=== PATIENT | male | born 1930 | race Caucasian/White ===

== ENCOUNTER 2017-10-31 13:13 | Emergency (ER) | payer MEDICARE, BC ==
[~2017-10-31 13:13] MED LIST: ASPI81TA15 PO; PRED-314 PO; QUET25TA31 PO
--- NOTE | 2017-10-31 13:20 | ER Report ---
History and Physical Time Seen By MD: 13:21 HPI/ROS CHIEF COMPLAINT: Questionable silent seizure HISTORY OF PRESENT ILLNESS: This is an 87-year-old male who presents to the emergency department with his daughters for crushable silent seizure. The patient apparently was out working in his yard this morning mowing his lawn, came back in his daughters had some lunch for him at around noon one daughter was sitting across from him she states that his eyes rolled back in his head and was "not there" for approximately 15-30 seconds, she called her sister who is in the other room by the time she came in to see what was going on he was back to n ormal, no postictal period. Acting appropriate. No chest pain or shortness of breath. No nausea vomiting. No diaphoresis. No recent fevers or chills. No focal neuro deficits. No headaches. No facial droop. REVIEW OF SYSTEMS: Constitutional: No fever, no chills. Eyes: No discharge. ENT: No sore throat. Cardiovascular: No chest pain, no palpitations. Respiratory: No cough, no shortness of breath. Gastrointestinal: No abdominal pain, no vomiting. Genitourinary: No hematuria. Musculoskeletal: No back pain. Skin: No rashes. Neurological: As above. Allergies: Coded Allergies: No Known Drug Allergies (Unverified , 10/31/17) Home Meds Reported Medications Melatonin (MELATONIN) 1 Mg Tab.subl, 1 MG SL 10/31/17 Quetiapine Fumarate (SEROQUEL) 25 Mg Tablet, 12.5 MG PO QHS 12/04/11 Discontinued Reported Medications Prednisone (PREDNISONE) 20 Mg Tablet, 20 MG PO BID, #14 12/05/11 Aspirin (ASPIRIN) 81 Mg Tablet.dr, 81 MG PO DAILY 12/04/11 Past Medical/Surgical History The patient has a past medical and surgical history of emphysema, wears glasses, hiatal hernia, depression. Reviewed Nurses Notes: Yes Hx Smoking: Yes (1PACK/DAY) Hx Substance Use Disorder: No Hx Alcohol Use: Yes Constitutional Vital Sign - Last 24 Hours 10/31/17 10/31/17 10/31/17 10/31/17 13:13 13:17 13:26 13:28 Pulse ??? 80 76 Resp 16 14 B/P (MAP) 98/60 98/60 (73) Pulse Ox 95 93 10/31/17 10/31/17 10/31/17 10/31/17 13:30 13:43 13:58 14:00 Pulse 75 74 Resp 16 30 B/P (MAP) 99/62 (74) 98/63 (75) Pulse Ox 93 92 10/31/17 10/31/17 10/31/17 10/31/17 14:13 14:28 14:30 14:35 Pulse 71 67 64 Resp 19 13 15 B/P (MAP) 109/88 (95) Pulse Ox 92 96 97 10/31/17 10/31/17 10/31/17 14:50 15:00 15:05 Pulse 69 ??? Resp 11 12 B/P (MAP) 116/77 (90) Pulse Ox 94 85 Physical Exam General Appearance: The patient is alert, has no immediate need for airway protection and no signs of toxicity. Eyes: Pupils equal and round no pallor or injection. EOMs intact. No nystagmus. ENT, Mouth: Mucous membranes are moist. Respiratory: There are no retractions, lungs are clear to auscultation. Cardiovascular: Regular rate and rhythm, distant, no murmurs, clicks or rubs. Gastrointestinal: Abdomen is soft and non tender, no masses, bowel sounds normal. Neurological: Alert and oriented 4. Moving all extremities. Following all commands. No focal neuro deficits. Cranial nerves II through XII intact. Skin: Warm and dry, no rashes. Musculoskeletal: Neck is supple non tender. Extremities are nontender, nonswollen and have full range of motion. DIFFERENTIAL DIAGNOSIS: After history and physical exam differential diagnosis was considered for TIA, CVA, myocardial infarction, absence seizure, migraine, and near syncope. Medical Decision Making Data Points Result Diagram: 10/31/17 1357 10/31/17 1357 Laboratory Hematology Test 10/31/17 13:20 10/31/17 13:57 Urine Color Yellow Urine Clarity Slightly-cloudy Urine pH 5.0 pH (4.8-9.5) Urine Specific Clifford 1.018 Urine Protein Negative mg/dL (NEGATIVE) Urine Glucose (UA) Negative mg/dL (NEGATIVE) Urine Ketones Trace mg/dL (NEGATIVE) Urine Blood Large (NEGATIVE) Urine Nitrite Negative (NEGATIVE) Urine Bilirubin Negative (NEGATIVE) Urine Urobilinogen Negative mg/dL (0.2-1.9) Urine Leukocyte Esterase Trace (NEGATIVE) Urine RBC 152 /HPF (0-2/HPF) Urine WBC 28 /HPF (0-5/HPF) Urine Squamous Epithelial Cells Few /LPF (</=FEW) Urine Transitional Epithelial Cells Many /LPF (NONE-FEW) Urine Bacteria Negative /HPF (NONE-FEW) Urine Hyaline Casts Few /LPF (NONE-FEW) Urine Mucus Few /HPF (NONE-FEW) Red Blood Count 3.95 M/uL (4.00-5.60) Mean Corpuscular Volume 103.1 fL (80.0-96.0) Mean Corpuscular Hemoglobin 35.1 pg (26.0-33.0) Mean Corpuscular Hemoglobin Concent 34.0 g/dL (32.0-36.0) Red Cell Distribution Width 14.4 % (11.5-14.5) Mean Platelet Volume 8.9 fL (7.2-11.1) Neutrophils (%) (Auto) 70.5 % (39.4-72.5) Lymphocytes (%) (Auto) 17.8 % (17.6-49.6) Monocytes (%) (Auto) 9.1 % (4.1-12.4) Eosinophils (%) (Auto) 1.1 % (0.4-6.7) Basophils (%) (Auto) 1.5 % (0.3-1.4) Nucleated RBC Relative Count (auto) 0.0 /100WBC Neutrophils # (Auto) 3.0 K/uL (2.0-7.4) Lymphocytes # (Auto) 0.8 K/uL (1.3-3.6) Monocytes # (Auto) 0.4 K/uL (0.3-1.0) Eosinophils # (Auto) 0.0 K/uL (0.0-0.5) Basophils # (Auto) 0.1 K/uL (0.0-0.1) Nucleated RBC Absolute Count (auto) 0.00 K/uL Sodium Level 140 mmol/L (137-145) Potassium Level 4.2 mmol/L (3.5-5.0) Chloride Level 105 mmol/L (98-107) Carbon Dioxide Level 27 mmol/L (22-30) Blood Urea Nitrogen 30 mg/dl (9-21) Creatinine 1.20 mg/dl (0.66-1.25) Glomerular Filtration Rate Calc 57.3 Random Glucose 78 mg/dl (75-110) Calcium Level 8.9 mg/dl (8.4-10.2) Total Bilirubin 0.3 mg/dl (0.2-1.3) Aspartate Amino Transf (AST/SGOT) 24 U/L (0-35) Alanine Aminotransferase (ALT/SGPT) 26 U/L (0-56) Alkaline Phosphatase 45 U/L (0-126) Troponin I 0.035 ng/ml Total Protein 6.6 g/dl (6.3-8.2) Albumin 3.9 g/dl (3.5-5.0) Chemistry Test 10/31/17 13:20 10/31/17 13:57 Urine Color Yellow Urine Clarity Slightly-cloudy Urine pH 5.0 pH (4.8-9.5) Urine Specific Clifford 1.018 Urine Protein Negative mg/dL (NEGATIVE) Urine Glucose (UA) Negative mg/dL (NEGATIVE) Urine Ketones Trace mg/dL (NEGATIVE) Urine Blood Large (NEGATIVE) Urine Nitrite Negative (NEGATIVE) Urine Bilirubin Negative (NEGATIVE) Urine Urobilinogen Negative mg/dL (0.2-1.9) Urine Leukocyte Esterase Trace (NEGATIVE) Urine RBC 152 /HPF (0-2/HPF) Urine WBC 28 /HPF (0-5/HPF) Urine Squamous Epithelial Cells Few /LPF (</=FEW) Urine Transitional Epithelial Cells Many /LPF (NONE-FEW) Urine Bacteria Negative /HPF (NONE-FEW) Urine Hyaline Casts Few /LPF (NONE-FEW) Urine Mucus Few /HPF (NONE-FEW) White Blood Count 4.3 k/uL (4.5-11.0) Red Blood Count 3.95 M/uL (4.00-5.60) Hemoglobin 13.8 g/dL (14.0-18.0) Hematocrit 40.7 % (42.0-52.0) Mean Corpuscular Volume 103.1 fL (80.0-96.0) Mean Corpuscular Hemoglobin 35.1 pg (26.0-33.0) Mean Corpuscular Hemoglobin Concent 34.0 g/dL (32.0-36.0) Red Cell Distribution Width 14.4 % (11.5-14.5) Platelet Count 128 K/uL (150-450) Mean Platelet Volume 8.9 fL (7.2-11.1) Neutrophils (%) (Auto) 70.5 % (39.4-72.5) Lymphocytes (%) (Auto) 17.8 % (17.6-49.6) Monocytes (%) (Auto) 9.1 % (4.1-12.4) Eosinophils (%) (Auto) 1.1 % (0.4-6.7) Basophils (%) (Auto) 1.5 % (0.3-1.4) Nucleated RBC Relative Count (auto) 0.0 /100WBC Neutrophils # (Auto) 3.0 K/uL (2.0-7.4) Lymphocytes # (Auto) 0.8 K/uL (1.3-3.6) Monocytes # (Auto) 0.4 K/uL (0.3-1.0) Eosinophils # (Auto) 0.0 K/uL (0.0-0.5) Basophils # (Auto) 0.1 K/uL (0.0-0.1) Nucleated RBC Absolute Count (auto) 0.00 K/uL Glomerular Filtration Rate Calc 57.3 Calcium Level 8.9 mg/dl (8.4-10.2) Total Bilirubin 0.3 mg/dl (0.2-1.3) Aspartate Amino Transf (AST/SGOT) 24 U/L (0-35) Alanine Aminotransferase (ALT/SGPT) 26 U/L (0-56) Alkaline Phosphatase 45 U/L (0-126) Troponin I 0.035 ng/ml Total Protein 6.6 g/dl (6.3-8.2) Albumin 3.9 g/dl (3.5-5.0) Urinalysis Test 10/31/17 13:20 Urine Color Yellow Urine Clarity Slightly-cloudy Urine pH 5.0 pH (4.8-9.5) Urine Specific Clifford 1.018 Urine Protein Negative mg/dL (NEGATIVE) Urine Glucose (UA) Negative mg/dL (NEGATIVE) Urine Ketones Trace mg/dL (NEGATIVE) Urine Blood Large (NEGATIVE) Urine Nitrite Negative (NEGATIVE) Urine Bilirubin Negative (NEGATIVE) Urine Urobilinogen Negative mg/dL (0.2-1.9) Urine Leukocyte Esterase Trace (NEGATIVE) Urine RBC 152 /HPF (0-2/HPF) Urine WBC 28 /HPF (0-5/HPF) Urine Squamous Epithelial Cells Few /LPF (</=FEW) Urine Transitional Epithelial Cells Many /LPF (NONE-FEW) Urine Bacteria Negative /HPF (NONE-FEW) Urine Hyaline Casts Few /LPF (NONE-FEW) Urine Mucus Few /HPF (NONE-FEW) EKG/Imaging EKG Interpretation 12 lead EKG: Time of EKG 1359. Rhythm: Sinus rhythm, ventricular rate 69 bpm, first-degree AV block. [place]: Left QRS: normal ST segments: No ST depression or elevation identified, poor T-wave progression in V2. No previous EKGs to compare to. Imaging CHEST PA AND LAT HISTORY: Silent seizure. COMPARISON: Chest x-ray August 10, 2016. FINDINGS: Cardiomediastinal contours: The heart is enlarged. There is prominent calcifica tion of the aortic valve and aortic arch. Lungs and pleura: There is hyperinflation of the lungs. There is no acute infiltrate. Bones/soft tissues: Osteopenia without findings of a fracture. IMPRESSION: 1. Cardiomegaly with prominent calcification of the aortic valve suggestive of aortic stenosis. 2. No congestive heart failure or infiltrate. 3. Hyperinflation of the lungs. Report Dictated By: Hair Tang MD at 10/31/2017 2:23 PM Report E-Signed By: Hair Tang MD at 10/31/2017 2:24 PM WSN:[email or web address] ED Course/Re-evaluation Clinical Indication for ER IV: Hydration, IV Access ED Course The patient was admitted to a room. A history and physical were obtained. Differential diagnoses were considered. IV was started. EKG showing normal sinus rhythm. Two-view chest x-ray showing no acute cardiopulmonary process, does note that there is cardiomegaly and calcification of the aortic valve suggestive of aortic stenosis. A CBC, CMP, troponin CBC unchanged from previous lab studies, troponin 0.035, however pt has denied chest pain and shortness of breath recently, nothing today. Patient does have a history of emphysema, BUN of 30, creatanine of 1.20. No nausea or vomiting. The patient was given 1 L normal saline. Patient has had no other recurrent events while in the ED. I did review the laboratory studies and x-ray with the patient. Patient states he is ready to go home. Did not have a clear explanation as to why the patient had the one event, it could be secondary to working in his yard today with the lack of hydra tion. The patient was encouraged to follow up with his primary care provider for reevaluation, return to the ER for any other concerns or worsening symptoms. The patient had no other questions or concerns at this time and was discharged home. Decision to Disposition Date: Oct 31, 2017 Decision to Disposition Time: 15:11 Depart Departure Latest Vital Signs Vital Signs Date Time Temp Pulse Resp B/P (MAP) Pulse Ox O2 Delivery O2 Flow Rate FiO2 10/31/17 15:05 ??? 12 85 10/31/17 15:00 116/77 (90) Impression: Primary Impression: Cardiomegaly Additional Impression: Near syncope Condition: Improved Disposition: HOME OR SELF-CARE Referrals: PRABHA RUSSELL DO 1 Week Patient Instructions: Hypertrophic Cardiomyopathy (ED), Near Syncope (ED) Additional Instructions: I do not have a clear explanation as to why he had the episode today, however I do feel that this is secondary to your exposure to the sun working in the yard this morning he could be a near syncopal episode. Your laboratory studies are basically unchanged from previous studies. The chest x-ray and the EKG are unremarkable today. I would recommend following up with Dr. Russell next week for reevaluation. Please increase your water intake. Get plenty of rest. Continue with your current medications. Return to the ER for any other concerns or worsening symptoms. Problem Qualifiers [employer] Oct 31, 2017 13:20
[2017-10-31] MEDS ORDERED: MELA1TAB5 SL (13:26)
[2017-10-31] MEDS ORDERED: NS(*) 0.9% 1000 ML BAG 1,000 ML IV ONE (14:05)
--- NOTE | 2017-10-31 14:05 | EKG ---
FACILITY: [facility] - [place] PATIENT NAME: MARI MOTLEY : [id number] MR: [id number] V: [id number] EXAM DATE: ORDERING PHYSICIAN: JENIFER COOK TECHNOLOGIST: NICHOLE Test Reason : Blood Pressure : / mmHG Vent. Rate : 069 BPM Atrial Rate : 069 BPM P-R Int : 248 ms QRS Dur : 092 ms QT Int : 422 ms P-R-T Axes : 014 -85 085 degrees QTc Int : 452 ms Sinus rhythm with 1st degree AV block with fusion complexes Left axis deviation Anteroseptal infarct , age undetermined Abnormal ECG No previous ECGs available Confirmed by Ovi Charlton ([id number]) on 10/31/2017 4:57:17 PM Referred By: JENIFER Confirmed By:Ovi Romo
[2017-10-31 14:08] LABS: PLATELET COUNT, AUTOMATED 128 K/uL (150-450)
--- NOTE | 2017-10-31 14:27 | RADIOLOGY IMAGING REPORT ---
FACILITY: [facility] - [place] PATIENT NAME: Vivi Elias : 1930 MR: [id number] V: [id number] EXAM DATE: ORDERING PHYSICIAN: JENIFER COOK TECHNOLOGIST: Location: [facility] - [place] Patient: Vivi Elias : 1930 Visit/Account:[id number] Date of Sevice: 10/31/2017 CHEST PA AND LAT HISTORY: Silent seizure. COMPARISON: Chest x-ray August 10, 2016. FINDINGS: Cardiomediastinal contours: The heart is enlarged. There is prominent calcification of the aortic va lve and aortic arch. Lungs and pleura: There is hyperinflation of the lungs. There is no acute infiltrate. Bones/soft tissues: Osteopenia without findings of a fracture. IMPRESSION: 1. Cardiomegaly with prominent calcification of the aortic valve suggestive of aortic stenosis. 2. No congestive heart failure or infiltrate. 3. Hyperinflation of the lungs. Report Dictated By: Hair Tang MD at 10/31/2017 2:23 PM Report E-Signed By: Hair Tang MD at 10/31/2017 2:24 PM WSN:[email or web address]
[2017-10-31 15:00] VITALS: BP 116/77
== END 2017-10-31 15:20 | disposition home or self-care (01) ==
LOC: ER 13:24
DX: I51.7 Cardiomegaly (principal); R55 Syncope and collapse; J43.9 Emphysema, unspecified; F32.9 Major depressive disorder, single episode, unspecified; Z87.891 Personal history of nicotine dependence
CPT/HCPCS: 71046; 81001; 84484; 85025; 87088; 93005; 96360; 99283; J7030; 82040; 82247; 82310; 82374; 82435; 82565; 82947; 84075; 84132; 84155; 84295; 84450; 84460; 84520; 87077; 87186

== ENCOUNTER 2017-11-26 02:43 | Emergency (ER) | payer MEDICARE, BC ==
[2017-11-26 02:45] VITALS: BP 137/88
--- NOTE | 2017-11-26 03:06 | ER Report ---
History and Physical Time Seen By MD: 02:45 Hx. of Stated Complaint: PT FELL YESTERDAY AND HAS LACERATION ON TOP OF HEAD. HPI/ROS CHIEF COMPLAINT: Fall, scalp wound HISTORY OF PRESENT ILLNESS: 87-year-old male brought in by EMS from home. Patient fell yesterday into the side of his house, sustaining a small laceration to the top of his scalp at the vertex. Patient bandaged the wound at home. Called his primary care doctorGempis to arrange for a CAT scan for head injury. Patient has had some intermittent bleeding of the wound. Tonight he bled to the Band-Aid on the top of his head. His daughter called 911 to have him brought in for evaluation. Patient lives alone. He is very functional. He only retired 2 years ago. She denies headache, blurry vision, nausea or vomiting. Patient denies neck pain. REVIEW OF SYSTEMS: Respiratory: No cough, no dyspnea. Cardiovascular: No chest pain, no palpitations. Gastrointestinal: No vomiting, no abdominal pain. Musculoskeletal: No back pain. Allergies: Coded Allergies: No Known Drug Allergies (Unverified , 11/26/17) Home Meds Reported Medications Melatonin (MELATONIN) 1 Mg Tab.subl, 1 MG SL 10/31/17 Quetiapine Fumarate (SEROQUEL) 25 Mg Tablet, 12.5 MG PO QHS 12/04/11 Reviewed Nurses Notes: Yes Old Medical Records Reviewed: Yes Hx Smoking: Yes (1PACK/DAY) Hx Substance Use Disorder: No Hx Alcohol Use: Yes Constitutional Vital Sign - Last 24 Hours 11/26/17 11/26/17 11/26/17 11/26/17 02:45 02:45 02:58 03:18 Temp 98.0 Pulse 79 75 Resp 16 B/P (MAP) 137/88 (104) 137/88 Pulse Ox 93 86 92 O2 Delivery Room Air 11/26/17 04:12 O2 Flow Rate 2.0 Physical Exam Vital signs stable, afebrile, pulse ox normal General Appearance: The patient is alert, has no immediate need for airway protection and no current signs of toxicity.. Palpation of the head and neck reveals no tenderness or trauma except for a tiny 1 cm laceration at the right vertex HEENT: Pupils equal and round no injection. TMs normal, oropharynx without dental trauma Respiratory: Chest is non tender, lungs are clear to auscultation. No chest wall tenderness Cardiac: regular rate and rhythm Gastrointestinal: Abdomen is soft and non tender, no masses, bowel sounds normal. Musculoskeletal: Neck: Neck is supple and non tender. No tenderness on aggressive palpation of the midline Extremities have full range of motion and are non tender. Skin: No rashes or lesions. Neuro alert and oriented 3, cranial nerves II through XII intact motor 5/5 all groups, sensory intact to light touch 4 DIFFERENTIAL DIAGNOSIS: After history and physical exam differential diagnosis was considered for head injury including but not limited to concussion, skull fracture, intraparenchymal contusion, subarachnoid, subdural and epidural hematoma. Medical Decision Making EKG/Imaging Imaging Results: CT scan of the [head] was obtained. The results of the study are The study was read by the radiologist. I viewed the images myself on the PACS system. ED Course/Re-evaluation ED Course Patient was admitted to an examination room. H&P was done. The differential diagnoses was considered. On clinical examination. Patient has a nonfocal neurologic examination. His head CT is performed to rule out intracranial injury. The patient's wound continued to bleed slowly. It was infiltrated with Sensorcaine 0.5% with epinephrine. A pressure dressing was applied but it con tinued to ooze. 3 magda were applied to the 1.0 cm laceration. A pressure dressing was applied., Magda to be removed in 10 days. Follow-up with Dr. Barone Procedure: Laceration repair. Verbal consent was obtained from the patient. The 1.0 cm laceration on the right parietal scalp was anesthetized in the usual fashion. The wound was scrubbed, draped and explored to its base with a gloved finger. The wound was repaired with magda 3. The wound repair was simple. The procedure was performed by myself. Decision to Disposition Date: Nov 26, 2017 Decision to Disposition Time: 03:51 Depart Departure Latest Vital Signs Vital Signs Date Time Temp Pulse Resp B/P (MAP) Pulse Ox O2 Delivery O2 Flow Rate FiO2 11/26/17 04:12 2.0 11/26/17 03:18 92 11/26/17 02:58 75 11/26/17 02:45 98.0 16 137/88 Room Air Impression: Primary Impression: Scalp laceration Additional Impression: Head injury Condition: Improved Disposition: HOME OR SELF-CARE Referrals: PRABHA RUSSELL DO (PCP) Patient Instructions: Head Injury (ED), Laceration (ED) Additional Instructions: You may wash your wound site with baby shampoo or shampoo as normal, gently blot the area dry Follow-up with Dr. Russell and have her magda removed in 10 days Problem Qualifiers Primary Impression: Scalp laceration Encounter type: initial encounter Qualified Codes: S01.01XA - Laceration without foreign body of scalp, initial encounter Additional Impression: Head injury Encounter type: initial encounter Qualified Codes: S09.90XA - Unspecified injury of head, initial encounter FORREST FAUST DO Nov 26, 2017 03:06
--- NOTE | 2017-11-26 03:45 | RADIOLOGY IMAGING REPORT ---
FACILITY: [facility] PATIENT NAME: Vivi Elias : 1930 MR: [id number] V: [id number] EXAM DATE: ORDERING PHYSICIAN: FORREST FAUST TECHNOLOGIST: Location: [facility] Patient: Vivi Elias : 1930 Visit/Account:[id number] Date of Sevice: 11/26/2017 CT Head without contrast Indication: Fall. Laceration. Comparison: None available Technique: Axial CT images were obtained through the brain from the skull base to the vertex without administration of IV contrast. Reformatted coronal and sagittal images were also obtained. One of the following dose optimization techniques was utilized in the performance of this exam: Autom ated exposure control; adjustment of the mA and/or kV according to the patient's size; or use of an i terative reconstruction technique. Specific details can be referenced in the facility's radiology C T exam operational policy. Findings: No evidence of mass, mass effect, or midline shift. No acute intracranial hemorrhage or acute territorial infarction. Marked periventricular white matter changes are seen. These correspond to areas of T2 hyperintensity on a prior brain MRI in 2015. Stable bilateral frontal hygromas are seen. No acute hemorrhage. Mild diffuse cerebral atrophy is present. There is a scalp hematoma overlying the vertex to the right of midline. No underlying fracture. Paranasal sinuses are well aerated IMPRESSION: 1. No acute intracranial abnormality. 2. Extensive periventricular white matter change likely related to chronic small vessel ischemia. Sim ilar findings on MRI in 2014. 3. 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 4. Scalp hematoma without fracture in keeping with the reported history. Report Dictated By: Junito Aviles at 11/26/2017 3:31 AM Report E-Signed By: Junito Aviles at 11/26/2017 3:40 AM WSN:[id number]
== END 2017-11-26 04:03 | disposition home or self-care (01) ==
LOC: ER 02:59
DX: S01.01XA Laceration without foreign body of scalp, initial encounter (principal); S09.90XA Unspecified injury of head, initial encounter
CPT/HCPCS: 70450; 99284

== ENCOUNTER → 2017-11-26 | Outpatient (CLI) | payer MEDICARE, BC ==
[~2017-11-26] MED LIST changes: +MELA1TAB5 SL
== END ==
LOC: AMB 02:21
PROVIDERS: ATTEND Nurse Practitioner
DX: S01.01XA Laceration without foreign body of scalp, initial encounter (principal)
CPT/HCPCS: A0425; A0429

== ENCOUNTER 2018-07-18 20:37 | Emergency (ER) | payer MEDICARE, BC ==
--- NOTE | 2018-07-18 20:40 | ER Report ---
History and Physical Time Seen By MD: 20:40 HPI/ROS CHIEF COMPLAINT: Weakness HISTORY OF PRESENT ILLNESS: 88-year-old male brought in by his family with concerns over increasing weakness over the last 2 days. He was diagnosed with UTI by primary care, placed on Cipro by Dr. Russell his primary care. He's been having trouble voiding his urine for the last several days. He's also had some constipation, but he's been taking MiraLAX and prune juice with improvement of his bowel function. Patient denies shortness of breath or cough. Pain. He is normally on 2 L by nasal cannula. He is hypoxic on arrival at 75% on room air. He's placed on supplemental O2 requiring 5 L to get to 96% after a DuoNeb. Patient denies chest pain or productive cough. REVIEW OF SYSTEMS: Respiratory: As above Cardiovascular: No chest pain, no palpitations. Gastrointestinal: No vomiting, no abdominal pain. Musculoskeletal: No back pain. Allergies: Coded Allergies: No Known Drug Allergies (Unverified , 11/26/17) Home Meds Reported Medications Quetiapine Fumarate (QUETIAPINE FUMARATE) 50 Mg Tablet, 1 TAB PO QHS 07/18/18 Tamsulosin Hcl (FLOMAX) 0.4 Mg Cap.er.24h, 1 TAB PO QDAY 07/18/18 Ciprofloxacin Hcl (CIPROFLOXACIN HCL) 250 Mg Tablet, 1 TAB PO BID 07/18/18 Discontinued Reported Medications Melatonin (MELATONIN) 1 Mg Tab.subl, 1 MG SL 10/31/17 Quetiapine Fumarate (SEROQUEL) 25 Mg Tablet, 12.5 MG PO QHS 12/04/11 Past Medical/Surgical History The patient has a past medical and surgical history of emphysema, wears glasses, hiatal hernia, depression. Reviewed Nurses Notes: Yes Old Medical Records Reviewed: Yes Hx Smoking: Yes (1PACK/DAY) Hx Substance Use Disorder: No Hx Alcohol Use: Yes Constitutional Vital Sign - Last 24 Hours 07/18/18 07/18/18 07/18/18 07/18/18 20:45 20:45 20:47 20:48 Temp 99.4 Pulse 171 169 Resp 24 B/P (MAP) 98/69 98/69 (79) 108/71 (83) Pulse Ox 77 77 O2 Delivery Room Air 07/18/18 07/18/18 07/18/18 07/18/18 20:57 21:00 21:04 21:05 Pulse 177 110 Resp 11 28 B/P (MAP) 102/66 (78) Pulse Ox 61 O2 Flow Rate 3.0 07/18/18 07/18/18 07/18/18 07/18/18 21:05 21:07 21:12 21:12 Pulse 114 114 Resp 14 28 Pulse Ox 100 93 92 O2 Delivery Oxy Mask Nasal Cannula O2 Flow Rate 10.0 5.0 07/18/18 07/18/18 07/18/18 07/18/18 21:17 21:30 21:37 21:47 Pulse 111 110 109 Resp 17 17 15 B/P (MAP) 124/82 (96) Pulse Ox 93 96 97 07/18/18 07/18/18 07/18/18 07/18/18 21:57 22:00 22:14 22:17 Pulse 119 110 Resp 17 17 B/P (MAP) 103/75 (84) 121/78 (92) Pulse Ox 83 97 07/18/18 07/18/18 07/18/18 07/18/18 22:40 22:45 23:00 23:15 Pulse 98 95 97 Resp 16 18 15 B/P (MAP) 104/66 (79) 108/63 (78) 114/74 (87) 07/18/18 07/18/18 07/19/18 07/19/18 23:30 23:45 00:00 00:30 Pulse 89 93 89 92 Resp 12 11 15 24 B/P (MAP) 103/67 (79) 112/74 (87) 103/68 (80) 07/19/18 07/19/18 07/19/18 00:45 01:30 02:00 Pulse 89 94 80 Resp 101 16 18 B/P (MAP) 108/72 (84) Pulse Ox 95 O2 Delivery Nasal Cannula O2 Flow Rate 4 Intake and Output 07/18/18 07/18/18 07/19/18 15:00 23:00 07:00 Intake Total 550 ml Balance 550 ml Physical Exam General Appearance: The patient is alert, has no immediate need for airway protection and no current signs of toxicity., Low-grade fever, moderate respiratory distress, hypoxic HEENT: Pupils equal and round no injection. Oropharynx without redness or exudate, mucous. Membranes are moist Respiratory: Chest is non tender, lungs are clear to auscultation. No wheezing or rails Cardiac: regular rate and rhythm, distant heart sounds Gastrointestinal: Abdomen is soft and non tender, no masses, bowel sounds normal. Musculoskeletal: Neck: Neck is supple and non tender. No JVD, no lymphadenopathy Extremities have full range of motion and are non tender. No edema, no calf tenderness Skin: No rashes or lesions. DIFFERENTIAL DIAGNOSIS: After history and physical exam differential diagnosis was considered for shortness of breath including but not limited to pulmonary infectious process, COPD, asthma, pulmonary embolus and congestive heart failure. Additionally, sepsis, urinary retention, urinary tract infection, constipation Medical Decision Making Data Points Result Diagram: 07/18/18205607/18/182056 Laboratory Hematology Test 07/18/18 20:57 07/18/18 21:30 Red Blood Count 4.07 M/uL (4.00-5.60) Mean Corpuscular Volume 101.5 fL (80.0-96.0) Mean Corpuscular Hemoglobin 34.0 pg (26.0-33.0) Mean Corpuscular Hemoglobin Concent 33.5 g/dL (32.0-36.0) Red Cell Distribution Width 14.0 % (11.5-14.5) Mean Platelet Volume 9.0 fL (7.2-11.1) Neutrophils (%) (Auto) 86.8 % (39.4-72.5) Lymphocytes (%) (Auto) 4.5 % (17.6-49.6) Monocytes (%) (Auto) 8.2 % (4.1-12.4) Eosinophils (%) (Auto) 0.1 % (0.4-6.7) Basophils (%) (Auto) 0.4 % (0.3-1.4) Nucleated RBC Relative Count (auto) 0.1 /100WBC Neutrophils # (Auto) 9.1 K/uL (2.0-7.4) Lymphocytes # (Auto) 0.5 K/uL (1.3-3.6) Monocytes # (Auto) 0.9 K/uL (0.3-1.0) Eosinophils # (Auto) 0.0 K/uL (0.0-0.5) Basophils # (Auto) 0.0 K/uL (0.0-0.1) Nucleated RBC Absolute Count (auto) 0.01 K/uL Peripheral Blood Smear No Y/N D-Dimer Quantitative (PE/DVT) > 20.00 ug/ml (0-0.50) Sodium Level 143 mmol/L (137-145) Potassium Level 4.2 mmol/L (3.5-5.0) Chloride Level 108 mmol/L (98-107) Carbon Dioxide Level 21 mmol/L (22-30) Blood Urea Nitrogen 28 mg/dl (9-21) Creatinine 1.20 mg/dl (0.66-1.25) Glomerular Filtration Rate Calc 57.1 Random Glucose 103 mg/dl (75-110) Lactate 4.2 mmol/L (0.7-2.1) Calcium Level 9.5 mg/dl (8.4-10.2) Total Bilirubin 0.3 mg/dl (0.2-1.3) Aspartate Amino Transf (AST/SGOT) 33 U/L (0-35) Alanine Aminotransferase (ALT/SGPT) 29 U/L (0-56) Alkaline Phosphatase 117 U/L (0-126) Troponin I 0.147 ng/ml B-Type Natriuretic Peptide 445 pg/ml (0-100) Total Protein 7.2 g/dl (6.3-8.2) Albumin 4.0 g/dl (3.5-5.0) Urine Color Blue Urine Clarity Cloudy Urine pH 5.0 pH (4.8-9.5) Urine Specific [place] 1.018 Urine Protein Negative mg/dL (NEGATIVE) Urine Glucose (UA) Negative mg/dL (NEGATIVE) Urine Ketones Negative mg/dL (NEGATIVE) Urine Blood Large (NEGATIVE) Urine Nitrite Negative (NEGATIVE) Urine Bilirubin Negative (NEGATIVE) Urine Urobilinogen Negative mg/dL (0.2-1.9) Urine Leukocyte Esterase Moderate (NEGATIVE) Urine RBC 139 /HPF (0-2/HPF) Urine WBC 45 /HPF (0-5/HPF) Urine Squamous Epithelial Cells Few /LPF (</=FEW) Urine Transitional Epithelial Cells Many /LPF (NONE-FEW) Urine Bacteria Negative /HPF (NONE-FEW) Urine Granular Casts Few /LPF (NONE) Urine Mucus None /HPF (NONE-FEW) Chemistry Test 07/18/18 20:57 07/18/18 21:30 White Blood Count 10.5 k/uL (4.5-11.0) Red Blood Count 4.07 M/uL (4.00-5.60) Hemoglobin 13.8 g/dL (14.0-18.0) Hematocrit 41.3 % (42.0-52.0) Mean Corpuscular Volume 101.5 fL (80.0-96.0) Mean Corpuscular Hemoglobin 34.0 pg (26.0-33.0) Mean Corpuscular Hemoglobin Concent 33.5 g/dL (32.0-36.0) Red Cell Distribution Width 14.0 % (11.5-14.5) Platelet Count 165 K/uL (150-450) Mean Platelet Volume 9.0 fL (7.2-11.1) Neutrophils (%) (Auto) 86.8 % (39.4-72.5) Lymphocytes (%) (Auto) 4.5 % (17.6-49.6) Monocytes (%) (Auto) 8.2 % (4.1-12.4) Eosinophils (%) (Auto) 0.1 % (0.4-6.7) Basophils (%) (Auto) 0.4 % (0.3-1.4) Nucleated RBC Relative Count (auto) 0.1 /100WBC Neutrophils # (Auto) 9.1 K/uL (2.0-7.4) Lymphocytes # (Auto) 0.5 K/uL (1.3-3.6) Monocytes # (Auto) 0.9 K/uL (0.3-1.0) Eosinophils # (Auto) 0.0 K/uL (0.0-0.5) Basophils # (Auto) 0.0 K/uL (0.0-0.1) Nucleated RBC Absolute Count (auto) 0.01 K/uL Peripheral Blood Smear No Y/N D-Dimer Quantitative (PE/DVT) > 20.00 ug/ml (0-0.50) Glomerular Filtration Rate Calc 57.1 Lactate 4.2 mmol/L (0.7-2.1) Calcium Level 9.5 mg/dl (8.4-10.2) Total Bilirubin 0.3 mg/dl (0.2-1.3) Aspartate Amino Transf (AST/SGOT) 33 U/L (0-35) Alanine Aminotransferase (ALT/SGPT) 29 U/L (0-56) Alkaline Phosphatase 117 U/L (0-126) Troponin I 0.147 ng/ml B-Type Natriuretic Peptide 445 pg/ml (0-100) Total Protein 7.2 g/dl (6.3-8.2) Albumin 4.0 g/dl (3.5-5.0) Urine Color Blue Urine Clarity Cloudy Urine pH 5.0 pH (4.8-9.5) Urine Specific [place] 1.018 Urine Protein Negative mg/dL (NEGATIVE) Urine Glucose (UA) Negative mg/dL (NEGATIVE) Urine Ketones Negative mg/dL (NEGATIVE) Urine Blood Large (NEGATIVE) Urine Nitrite Negative (NEGATIVE) Urine Bilirubin Negative (NEGATIVE) Urine Urobilinogen Negative mg/dL (0.2-1.9) Urine Leukocyte Esterase Moderate (NEGATIVE) Urine RBC 139 /HPF (0-2/HPF) Urine WBC 45 /HPF (0-5/HPF) Urine Squamous Epithelial Cells Few /LPF (</=FEW) Urine Transitional Epithelial Cells Many /LPF (NONE-FEW) Urine Bacteria Negative /HPF (NONE-FEW) Urine Granular Casts Few /LPF (NONE) Urine Mucus None /HPF (NONE-FEW) Coagulation Test 07/18/18 20:57 D-Dimer Quantitative (PE/DVT) > 20.00 ug/ml Urinalysis Test 07/18/18 21:30 Urine Color Blue Urine Clarity Cloudy Urine pH 5.0 pH (4.8-9.5) Urine Specific [place] 1.018 Urine Protein Negative mg/dL (NEGATIVE) Urine Glucose (UA) Negative mg/dL (NEGATIVE) Urine Ketones Negative mg/dL (NEGATIVE) Urine Blood Large (NEGATIVE) Urine Nitrite Negative (NEGATIVE) Urine Bilirubin Negative (NEGATIVE) Urine Urobilinogen Negative mg/dL (0.2-1.9) Urine Leukocyte Esterase Moderate (NEGATIVE) Urine RBC 139 /HPF (0-2/HPF) Urine WBC 45 /HPF (0-5/HPF) Urine Squamous Epithelial Cells Few /LPF (</=FEW) Urine Transitional Epithelial Cells Many /LPF (NONE-FEW) Urine Bacteria Negative /HPF (NONE-FEW) Urine Granular Casts Few /LPF (NONE) Urine Mucus None /HPF (NONE-FEW) Microbiology Microbiology Date/Time Source Procedure Growth Status 07/18/18 21:18 Blood Peripheral Draw Blood Culture - Preliminary NO GROWTH AFTER 1 DAY, REINCUBATED Resulted 07/18/18 20:57 Blood Peripheral Draw Blood Culture - Preliminary NO GROWTH AFTER 1 DAY, REINCUBATED Resulted 07/18/18 21:30 Clean Catch Midstream Ur Urine Culture - Preliminary NO GROWTH SO FAR, SET LATE. REINCUBATED Resulted EKG/Imaging EKG Interpretation 12 lead EKG: Rhythm: normal sinus rhythm [place]: normal QRS: normal ST segments: normal, comparison to previous EKG, there are old anterior Q waves with very mild ST elevation that appears a little more pronounced tonight, inferiorly. There is [address] depression in leads 2, 3 and aVF that appears to be new compared to previous EKG from 2017 Imaging X-ray: Single view portable chest x-ray was obtained. I viewed the images myself on the PACS system. My interpretation of the images is: No infiltrate, no effusion, normal mediastinum, hyperinflated lung coulter, comparison to previous chest x-ray. No significant change. The radiologist interpretation had no clinically significant variation from this interpretation. X-ray: Single. KUB of abdomen was obtained. I viewed the images myself on the PACS system. My interpretation of the images is: Moderate amount of stool throughout colon, no signs of obstruction. The radiologist interpretation had no clinically significant variation from this interpretation. Results: CT scan of the CTA pulmonary angiogram was obtained. The results of the study are CT angiogram of the chest: Indication: Dyspnea. Elevated d-dimer. Technique: Helical CT was performed through the chest following IV contrast enhancement with 75 cc of Isovue 370. Multiplanar reconstructions and MIP images are reviewed. One of the following dose optimization techniques was utilized in the performance of this exam: Automated exposure control; adjustment of the mA and/or kV according to the patient's size; or use of an iterative reconstruction technique. Specific details can be referenced in the facility's radiology CT exam operational policy. Comparison: None available. Pulmonary arteries: There is uniform contrast enhancement. There are no signs of pulmonary emboli. 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 There is also dilatation of the aortic arch, which measures 3.7 cm. There is no evidence of dissection. Diffuse athe rosclerotic calcification is present in the aortic wall. Heart and pericardial soft tissues: The heart appears normal in size. No pericardial effusion or soft tissue abnormality is identified. Mediastinal soft tissues: Unremarkable. Lung coulter: There is diffuse hyperinflation and diffuse emphysematous changes. No acute parenchymal process, mass, or nodules are identified. Pleural spaces: No evidence of effusion, focal pleural thickening, calcification, or soft tissue mass. Skeletal structures: Diffuse mild degenerative disc disease. No acute deformity. Upper abdomen: A tiny cyst is incidentally noted in the liver. Otherwise unremarkable. IMPRESSION: No evidence of pulmonary emboli. 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 There are no signs of dissection. There is diffuse hyperinflation and diffuse emphysematous changes in both lungs. No acute parenchymal or pleural process is identified. The study was read by the radiologist. I viewed the images myself on the PACS system. ED Course/Re-evaluation Clinical Indication for ER IV: Hydration, IV Access ED Course Patient was admitted to an examination room. H&P was done. The differential diagnoses was considered. Patient with shortness of breath and weakness. He has a low-grade fever 99. 4. He is currently being treated for urinary tract infection with Cipro. Patient is normally on 2 L by nasal cannula. He's grossly short of breath on arrival with air hunger and increased work of breathing. He is treated with a DuoNeb and supple. Mental to by simple mask is raise to 5 L to get his saturations in the 90s. Patient's EKG shows relatively no change from previous EKG there is some subtle ST depression approximately 1 mm in the inferior leads. There is subtle ST elevation in the anterior leads, but appears to be present on previous EKG, copies are provided. Patient's troponin returned grossly elevated at 0.174. Above the threshold of 0.12, suggesting evidence of ischemia. Patient was treated with 4 baby aspirin after strep troponin returned elevated. His BNP also returned at 450, suggesting congestive heart failure. His chest x-ray showed no obvious pulmonary vascular congestion or acute disease. D-dimer returned elevated at greater than 20. A CTA pulmonary angiogram was performed to rule out pulmonary embolism as the cause of strain in the elevated troponin. The CT scan was unremarkable for pulmonary embolism. There was a thoracic aneurysmal dilation to 4.7 cm without dissection noted. I long discussion with the patient and his daughter. He would like to go to a facility were cardiology can be consult with to treat him for a non-STEMI. Patient's lactate is elevated to 4.2. He shows some clinical symptoms of sepsis. Patient denies chest pain. 07/19/2018 12:05:54 am case was discussed with Dr. Arellano hospitalist at [facility] [place] patient for transfer. She would like to grams of Rocephin administered. And some gentle fluid resuscitation initiated. 07/19/2018 2:03:04 am patient decided to sign out against medical advice a prolonged explanation with him and his daughter about potential risks. Patient is electing to go home. He's advised to take at least a baby aspirin per day and follow-up with cardiology in clinic. Patient was given a calendar visiting cardiologists and the phone number to call. Decision to Disposition Date: July 18, 2018 Decision to Disposition Time: 22:12 Critical Care Time I spent a total of 60 minutes of critical care time in obtaining history, performing a physical exam, bedside monitoring of interventions, collecting and interpreting tests and discussion with consultants but not including time spent performing procedures. Depart Departure Latest Vital Signs Vital Signs Date Time Temp Pulse Resp B/P (MAP) Pulse Ox O2 Delivery O2 Flow Rate FiO2 07/19/18 02:00 80 18 108/72 (84) 95 Nasal Cannula 4 07/18/18 20:45 99.4 Impression: Primary Impression: Sepsis Additional Impressions: Dyspnea Weakness Hypoxia Non-STEMI (non-ST elevated myocardial infarction) Congestive heart failure Condition: Improved Disposition: AGAINST MED ADV / DISCONT CARE Referrals: PRABHA RUSSELL DO (PCP) Problem Qualifiers Primary Impression: Sepsis Sepsis type: sepsis due to unspecified organism Qualified Codes: A41.9 - Sepsis, unspecified organism Additional Impressions: Dyspnea Dyspnea type: unspecified Qualified Codes: R06.00 - Dyspnea, unspecified Congestive heart failure Heart failure type: unspecified Heart failure chronicity: acute Qualified Codes: I50.9 - Heart failure, unspecified FORREST FAUST DO July 18, 2018 20:40
[2018-07-18] MEDS ORDERED: NS(*) 0.9% 1000 ML BAG 1,000 ML IV ONE (20:51)
[2018-07-18] MEDS ORDERED: ALBUTEROL/IPRATROPIUM 3 ML NEB NEB ONE (20:55)
[2018-07-18 21:11] LABS: PLATELET COUNT, AUTOMATED 165 K/uL (150-450)
--- NOTE | 2018-07-18 21:15 | EKG ---
[place] [facility] [place] MARI MOTLEY : [id number] MR: [id number] V: [id number] EXAM DATE: ORDERING PHYSICIAN: FORREST FAUST TECHNOLOGIST: NIECY Test Reason : WEAKNESS Blood Pressure : / mmHG Vent. Rate : 115 BPM Atrial Rate : 115 BPM P-R Int : 160 ms QRS Dur : 088 ms QT Int : 344 ms P-R-T Axes : 000 -67 089 degrees QTc Int : 475 ms Sinus tachycardia . Likely, he has a 1st degree AV block after reviewing the previous, but it cannot be clearly seen today secondary to tachycardia Left axis deviation Anterolateral infarct (cited on or before 31-OCT-2017) Abnormal ECG When compared with ECG of 31-OCT-2017 13:59, Now tachycardic, but otherwise relatively unchanged. Confirmed by LOWELL REYNOSO ([id number]) on 07/18/2018 11:20:22 PM Referred By: Confirmed By:LOWELL REYNOSO
[2018-07-18] MEDS ORDERED: ASPIRIN 81 MG CHEW PO ONE (21:40)
[2018-07-18] MEDS ORDERED: CIPR-215 PO (21:42)
[2018-07-18] MEDS ORDERED: QUET50TA PO (21:42)
[2018-07-18] MEDS ORDERED: TAMS0.4C25 PO (21:42)
--- NOTE | 2018-07-18 22:20 | RADIOLOGY IMAGING REPORT ---
FACILITY: [facility] PATIENT NAME: Vivi Elias : 1930 MR: [id number] V: [id number] EXAM DATE: ORDERING PHYSICIAN: FORREST FAUST TECHNOLOGIST: Location: [facility] Patient: Vivi Elias : 1930 Visit/Account:[id number] Date of Sevice: 07/18/2018 KUB SINGLE VIEW ABDOMEN, CHEST SINGLE AP Indication: Dyspnea and hypoxia. Constipation.. Comparison: 2 views the chest on 10/31/2017 Findings: Heart size within normal limits. Markedly hyperinflated lung coulter again seen. There is no pneumothorax or effusion. There is no acut e process.No pneumothorax or pleural effusion. Single view of the abdomen shows moderate amount of stool within the colon. No evidence of bowel obst ruction. Vascular calcifications overlie the lower pelvis as well. 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 Multiple phleboliths seen in lower left pelvis. IMPRESSION: 1. No acute process or acute change from prior study.. 2. No evidence of bowel obstruction. Report Dictated By: Yadiel Cavazos MD at 07/18/2018 10:13 PM Report E-Signed By: Yadiel Cavazos MD at 07/18/2018 10:15 PM WSN:[id number]
--- NOTE | 2018-07-18 22:20 | RADIOLOGY IMAGING REPORT ---
FACILITY: [facility] PATIENT NAME: Vivi Elias : 1930 MR: [id number] V: [id number] EXAM DATE: ORDERING PHYSICIAN: FORREST FAUST TECHNOLOGIST: Location: [facility] Patient: Vivi Elias : 1930 Visit/Account:[id number] Date of Sevice: 07/18/2018 KUB SINGLE VIEW ABDOMEN, CHEST SINGLE AP Indication: Dyspnea and hypoxia. Constipation.. Comparison: 2 views the chest on 10/31/2017 Findings: Heart size within normal limits. Markedly hyperinflated lung coulter again seen. There is no pneumothorax or effusion. There is no acut e process.No pneumothorax or pleural effusion. Single view of the abdomen shows moderate amount of stool within the colon. No evidence of bowel obst ruction. Vascular calcifications overlie the lower pelvis as well. 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 Multiple phleboliths seen in lower left pelvis. IMPRESSION: 1. No acute process or acute change from prior study.. 2. No evidence of bowel obstruction. Report Dictated By: Yadiel Cavazos MD at 07/18/2018 10:13 PM Report E-Signed By: Yadiel Cavazos MD at 07/18/2018 10:15 PM WSN:[id number]
[2018-07-18] MEDS ORDERED: NS(*) 0.9% 50 ML BAG 50 ML ONE (22:24)
[2018-07-18] MEDS ORDERED: IOPAMIDOL 76% 100 ML INFUS BTL 100 ML ONE (22:24)
--- NOTE | 2018-07-18 23:26 | RADIOLOGY IMAGING REPORT ---
[facility] PATIENT NAME: Vivi Elias : 1930 MR: [id number] V: [id number] EXAM DATE: ORDERING PHYSICIAN: FORREST FAUST TECHNOLOGIST: Location: [facility] Patient: Vivi Elias : 1930 Visit/Account:[id number] Date of Sevice: 07/18/2018 CT angiogram of the chest: Indication: Dyspnea. Elevated d-dimer. Technique: Helical CT was performed through the chest following IV contrast enhancement with 75 cc of Isovue 370. Multiplanar reconstructions and MIP images are reviewed. One of the following dose optimization techniques was utilized in the performance of this exam: Autom ated exposure control; adjustment of the mA and/or kV according to the patient's size; or use of an i terative reconstruction technique. Specific details can be referenced in the facility's radiology CT exam operational policy. Comparison: None available. Pulmonary arteries: There is uniform contrast enhancement. There are no signs of pulmonary emboli. Aorta and great vessels: There is aneurysmal dilatation of the ascending thoracic aorta, which measur es 4.5 cm. There is also dilatation of the aortic arch, which measures 3.7 cm. There is no evidence o f dissection. Diffuse atherosclerotic calcification is present in the aortic wall. Heart and pericardial soft tissues: The heart appears normal in size. No pericardial effusion or soft tissue abnormality is identified. Mediastinal soft tissues: Unremarkable. Lung coulter: There is diffuse hyperinflation and diffuse emphysematous changes. No acute parenchymal process, mass, or nodules are identified. Pleural spaces: No evidence of effusion, focal pleural thickening, calcification, or soft tissue mass . Skeletal structures: Diffuse mild degenerative disc disease. No acute deformity. Upper abdomen: A tiny cyst is incidentally noted in the liver. Otherwise unremarkable. IMPRESSION: No evidence of pulmonary emboli. 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 There are no signs of dissection. There is diffuse hyperinflation and diffuse emphysematous changes in both lungs. No acute parenchymal or pleural process is identified. Report Dictated By: Amarjit Koo MD at 07/18/2018 11:11 PM Report E-Signed By: Amarjit Koo MD at 07/18/2018 11:21 PM WSN:[id number]
[2018-07-19] MEDS ORDERED: cefTRIAXone 2 GM VIAL IVP ONE (00:10)
[2018-07-19 02:00] VITALS: BP 108/72
== END 2018-07-19 02:10 | disposition left against medical advice (07) ==
LOC: ER 21:04
DX: A41.9 Sepsis, unspecified organism (principal); R06.00 Dyspnea, unspecified; R53.1 Weakness; R09.02 Hypoxemia; I21.4 Non-ST elevation (NSTEMI) myocardial infarction; I50.9 Heart failure, unspecified
CPT/HCPCS: 71045; 71275; 74018; 81001; 83605; 83880; 84484; 85025; 85379; 87040; 87088; 93005; 94640; 96361; 96374; A9270; J0696; J7030; J7050; J7620; Q9967; 82040; 82247; 82310; 82374; 82435; 82565; 82947; 84075; 84132; 84155; 84295; 84450; 84460; 84520; 99291